=== PATIENT | male | born 1985 | race Caucasian/White ===

== ENCOUNTER 2017-12-16 15:46 | Day surgery (SDC) | payer OTHER ==
[~2017-12-16] VITALS: Ht 172.7 cm; Wt 91.2 kg
[2017-12-16 16:17] LABS: BASOPHILS # (AUTO) 0.08 x10^3/uL (0-0.1); BASOPHILS % (AUTO) 1 % (0-1); EOSINOPHILS # (AUTO) 0.25 x10^3/uL (0-0.4); EOSINOPHILS % (AUTO) 3 % (1-7); LYMPHOCYTES # (AUTO) 2.43 x10^3/uL (1-3.4); LYMPHOCYTES % (AUTO) 25 % (22-44); MD NO; MEAN CORPUSCULAR HEMOGLOBIN 30.3 pg (27.5-34.5); MEAN CORPUSCULAR HGB CONC 34.7 g/dL (33.2-36.2); MEAN CORPUSCULAR VOLUME 87.2 fL (81-97); MEAN PLATELET VOLUME 7.1 fL (7.4-10.4); MONOCYTES # (AUTO) 0.65 x10^3/uL (0.2-0.8); MONOCYTES % (AUTO) 7 % (2-9); NEUTROPHILS # (AUTO) 6.42 x10^3/uL (1.8-6.8); NEUTROPHILS % (AUTO) 65 % (42-75); PLATELET COUNT 367 x10^3/uL (130-400); RED BLOOD COUNT 5.06 x10^6/uL (4.38-5.82); RED CELL DISTRIBUTION WIDTH 12.9 % (9.4-14.8)
[2017-12-16 16:24] LABS: ALANINE AMINOTRANSFERASE 34 U/L (12-78); ALBUMIN 4.2 g/dL (3.4-5.0); ANION GAP 8 mmol/L (5-15); CALCIUM 9.1 mg/dL (8.5-10.1); CHLORIDE 110 mmol/L (98-107); CREATININE 0.99 mg/dL (0.7-1.3)
[2017-12-16 16:26] LABS: ALKALINE PHOSPHATASE 59 U/L (45-117); BILIRUBIN,TOTAL 0.5 mg/dL (0.2-1.0); TOTAL PROTEIN 7.9 g/dL (6.4-8.2)
[2017-12-16 17:23] LABS: MICROSCOPIC NOT IND
[2017-12-16 17:24] LABS: CULTURE INDICATED? NO
[2017-12-16] MEDS ORDERED: OMNIPAQUE 350 MG/ML, 100ML BOTTLE ONE (17:44)
[2017-12-16] MEDS ORDERED: CEFOTETAN PMX 1GM/50ML 50 ML ONE (18:22)
[2017-12-16] MEDS ORDERED: SODIUM CHLORIDE 0.9% 1,000 ML IV ONE (18:30)
[2017-12-16] MEDS ORDERED: CEFOTETAN PMX 1GM/50ML 50 ML IV ONE (18:30)
[2017-12-16] MEDS ORDERED: EPINEPHRINE 1 MG/ML, 1ML ONE (18:34)
[2017-12-16] MEDS ORDERED: BUPIVACAINE/PF 0.5% ONE (18:34)
[2017-12-16] MEDS ORDERED: FENTANYL PF 250 MCG/5ML ONE (19:20)
[2017-12-16] MEDS ORDERED: MIDAZOLAM 1 MG/ML, 2ML ONE (19:20)
[2017-12-16] MEDS ORDERED: GLYCOPYRROLATE 0.4 MG/2 ML, 2ML ONE ×2 (19:21→19:51)
[2017-12-16] MEDS ORDERED: PROPOFOL 10 MG/ML, 20ML ONE (19:21)
[2017-12-16] MEDS ORDERED: NEOSTIGMINE 1 MG/ML, 10ML ONE (19:22)
[2017-12-16] MEDS ORDERED: ROCURONIUM 10MG/ML,5ML ONE (19:22)
[2017-12-16] MEDS ORDERED: SUCCINYLCHOLINE 20 MG/ML, 10ML ONE (19:22)
[2017-12-16] MEDS ORDERED: OXYcodone 5 MG/5 ML ORAL.SOL UDC PO PRN ×2 (19:30→20:30)
[2017-12-16] MEDS ORDERED: HYDROmorphone 1 MG/ML, 1ML IV PRN (19:30)
[2017-12-16] MEDS ORDERED: PROMETHAZINE 25 MG SUPP PR PRN (19:30)
[2017-12-16] MEDS ORDERED: ONDANSETRON 2MG/ML, 2ML IV PRN (19:30)
[2017-12-16] MEDS ORDERED: MEPERIDINE/PF 25MG/0.5ML IVPush PRN (19:30)
[2017-12-16] MEDS ORDERED: PROMETHAZINE 25 MG/ML, 1ML IV PRN (19:30)
[2017-12-16] MEDS ORDERED: ONDANSETRON ODT 8 MG PO PRN (19:30)
[2017-12-16] MEDS ORDERED: hydrALAzine 20 MG/ML, 1ML IV PRN (19:30)
[2017-12-16] MEDS ORDERED: ACETAMINOPHEN 325 MG TABLET PO PRN (19:30)
[2017-12-16] MEDS ORDERED: LABETALOL 5MG/ML, 20ML IV PRN (19:30)
[2017-12-16] MEDS ORDERED: PROMETHAZINE 12.5 MG SUPP PR PRN (19:30)
[2017-12-16] MEDS ORDERED: FENTANYL PF 100 MCG/2ML IV PRN (19:30)
[2017-12-16] MEDS ORDERED: MORPHINE SULFATE 4 MG/ML, 1ML IVPush PRN (19:30)
[2017-12-16] MEDS ORDERED: FENTANYL PF 100 MCG/2ML ONE (19:45)
[2017-12-16] MEDS ORDERED: KETOROLAC 30 MG/1 ML ONE (19:48)
[2017-12-16] MEDS ORDERED: morphine SULFATE 10 MG/ML, 1ML IVPush PRN (20:30)
[2017-12-16] MEDS ORDERED: ONDANSETRON 2MG/ML, 2ML IVPush PRN (20:30)
[2017-12-16] MEDS ORDERED: ACETAMINOPHEN 650 MG/20.3 ML UDC ONE (20:50)
[2017-12-16] MEDS ORDERED: OXYcodone 5 MG/5 ML ORAL.SOL UDC ONE (20:50)
[2017-12-16 21:28] VITALS: BP 139/96
[2017-12-16] MEDS ORDERED: OXYC5TAB2 PO (22:00)
== END 2017-12-16 22:45 | disposition home or self-care (01) ==
LOC: ED 18:38 → EDIP 19:22 → UNDOADMIN 19:22 → OR 20:06 → 4NOR 21:15 → EDIP 21:15 → UNDODISIN 22:45 → OR 22:45
PROVIDERS: ATTEND Student in an Organized Health Care Education/Training Program
DX: K35.80 Unspecified acute appendicitis (principal)
CPT/HCPCS: 36415; 44970; 74177; 80053; 81003; 83690; 85025; 88304; 99285; J0171; J0330; J1885; J2250; J2405; J2704; J2710; J3010; J3490; J7030; Q9967; S0074